=== PATIENT | female | born 1995 | race Caucasian/White ===

== ENCOUNTER 2018-06-12 01:11 | Emergency (ER) | payer OTHER ==
[~2018-06-12] VITALS: Ht 157.5 cm; Wt 49.9 kg
[~2018-06-12 01:11] MED LIST: COM5 PO; IBUP-2213 PO
[2018-06-12 01:27] VITALS: BP 107/68
--- NOTE | 2018-06-12 01:31 | NUR ---
PT TAKEN TO BED 11
[2018-06-12] MEDS ORDERED: ALBUTEROL 0.083% 2.5 MG/3 ML NEBU INH ONE (01:35)
[2018-06-12] MEDS ORDERED: predniSONE 20 MG TAB PO ONE (01:35)
[2018-06-12] MEDS ORDERED: ALBUTEROL SULFATE/IPRATROPIU 3 ML SOL IH ONE (01:35)
--- NOTE | 2018-06-12 01:35 | NUR ---
PT BIB SELF C/O ASTHMA EXACERBATION X1 HOUR AGO. PT STATES SHE WAS SLEEPING AND WOKE UP W/ SOB AND WHEEZING, UNRELIEVED BY HOME INHALER. AUDIBLE WHEEZING IN RIGHT LOBES ON INSPO AND EXPO. DENIES N/V/D, CP, LOC. AAOX4. SAT AT 100% ROOM AIR AT THIS TIME. 0/10 PAIN AT THIS TIME. SKIN WARM, DRY AND INTACT. PT IN GOWN IN BED; BED IN LOWER LOCKED POSITION. ER MD MADE AWARE OF PT STATUS. PMH: ASTHMA RX: PRN INHALER
--- NOTE | 2018-06-12 01:36 | NUR ---
RT AT BEDSIDE.
--- NOTE | 2018-06-12 02:23 | NUR ---
Dr. Schwartz evaluating patient at bedside.
[2018-06-12 02:33] VITALS: BP 148/73
--- NOTE | 2018-06-12 02:33 | NUR ---
Patient discharged with v/s stable. Written and verbal after care instructions given and explained. Patient alert, oriented and verbalized understanding of instructions. Ambulatory with steady gait. All questions addressed prior to discharge. ID band removed. Patient advised to follow up with PMD. Rx of ALBUTEROL INHALER, PREDNISONE given. Patient educated on indication of medication including possible reaction and side effects. Opportunity to ask questions provided and answered.
== END 2018-06-12 02:33 | disposition home or self-care (01) ==
LOC: MED 01:11
DX: J45.901 Unspecified asthma with (acute) exacerbation (principal); Z79.899 Other long term (current) drug therapy
CPT/HCPCS: 94640; 99283; J7512; J7613; J7620

== ENCOUNTER 2018-07-19 05:05 | Emergency (ER) | payer OTHER ==
[~2018-07-19] VITALS: Ht 157.5 cm; Wt 50.8 kg
[2018-07-19 05:07] VITALS: BP 123/70
--- NOTE | 2018-07-19 05:13 | NUR ---
TO ED 11 WITH STEADY GAIT
--- NOTE | 2018-07-19 05:14 | NUR ---
PT BIB SELF CO SOB SINCE 2200 YESTERDAY NIGHT. PT REPORTS SHE SELF ADMINISTERED 2 DOSES OF MED NEB ALBUTEROL, THE LAST ONE BEING 40 MINS AGO WITH NO RELIEF OF SYMPTOMS. -- AUDIBLE INS/EXP WHEEZES HEARD. PT IS GASPING AND APPEARS TO BE RESTLESS. CHEST RISE AND FALL SYMETRICAL. 02 SATURATION: 95% -- PMH: ASTHMA, ECXZEMA -- RX: ALBUTEROL
--- NOTE | 2018-07-19 05:19 | NUR ---
RT CALLED TO BEDSIDE FOR BREATHING TX PER DR. LOGAN. RT IN ICU, WILL BE HERE IN A FEW MINS.
--- NOTE | 2018-07-19 05:21 | NUR ---
Dr. Schwartz evaluating patient at bedside.
--- NOTE | 2018-07-19 05:27 | NUR ---
RT AT BEDSIDE.
[2018-07-19] MEDS ORDERED: ALBUTEROL 0.083% 2.5 MG/3 ML NEBU INH ONE ×2 (05:35→06:00)
[2018-07-19] MEDS ORDERED: ALBUTEROL SULFATE/IPRATROPIU 3 ML SOL IH ONE ×2 (05:36→06:00)
--- NOTE | 2018-07-19 05:36 | NUR ---
BREATHING TREATMENT IN PROGRESS. PREDNISONE 50 MG PO GIVEN.
[2018-07-19] MEDS ORDERED: predniSONE 20 MG TAB ONE (05:41)
--- NOTE | 2018-07-19 05:52 | NUR ---
2ND ALBUTEROL TX ORDERED; IN PROCESS.
[2018-07-19 06:14] VITALS: BP 135/72
--- NOTE | 2018-07-19 06:14 | NUR ---
Patient discharged with v/s stable. Written and verbal after care instructions given and explained. Patient alert, oriented and verbalized understanding of instructions. Ambulatory with steady gait. All questions addressed prior to discharge. ID band removed. Patient advised to follow up with PMD. Rx of Prednisone and Albuterol given. Patient educated on indication of medication including possible reaction and side effects. Opportunity to ask questions provided and answered.
== END 2018-07-19 06:14 | disposition home or self-care (01) ==
LOC: MED 05:05
DX: J45.901 Unspecified asthma with (acute) exacerbation (principal); Z79.1 Long term (current) use of non-steroidal anti-inflammatories (NSAID); Z79.899 Other long term (current) drug therapy
CPT/HCPCS: 94640; 99283; J7512; J7613; J7620

== ENCOUNTER 2018-10-20 00:40 | Emergency (ER) | payer OTHER ==
[~2018-10-20] VITALS: Ht 154.9 cm; Wt 45.4 kg
[2018-10-20 00:44] VITALS: BP 134/78
--- NOTE | 2018-10-20 00:50 | NUR ---
PT AMBULATED TO BED #1
--- NOTE | 2018-10-20 01:25 | NUR ---
23 YO F BIB SELF PRESENTS TO ED C/O RASH TO FACE AND ABD. PT STATES SHE THINKS SHE IS ALLERGIC TO THE MAKEUP SHE USES. PT HAS 2 RED OPEN SORES TO HER FOREHEAD AND ONE TO HER UPPER ABD REGION. DENIES ILICIT DRUG USE. DENIES FEVER, NVD. REPORTS 5/10 PAIN TO SORE AREAS. PMH-- ECZEMA, ASTHMA
[2018-10-20 02:24] VITALS: BP 99/57
[2018-10-20 02:28] LABS: BARBITURATE, URINE NEG. ng/ml (NEG <=200); BENZODIAZEPINE, URINE NEG. ng/mL (NEG <=200); CANNABINOID, URINE POS. ng/mL (NEG <=50); COCAINE, URINE NEG. ng/mL (NEG <=300); OPIATE, URINE NEG. ng/mL (NEG <=2000); PHENCYCLIDINE SCREEN,URINE NEG. ng/mL (NEG <=25)
== END 2018-10-20 02:24 | disposition home or self-care (01) ==
LOC: MED 00:40
DX: R21 Rash and other nonspecific skin eruption (principal); F15.10 Other stimulant abuse, uncomplicated; J45.909 Unspecified asthma, uncomplicated; Z79.899 Other long term (current) drug therapy
CPT/HCPCS: 80305; 99283

== ENCOUNTER 2018-12-01 06:38 | Emergency (ER) | payer OTHER ==
[~2018-12-01] VITALS: Ht 154.9 cm; Wt 44.0 kg
[2018-12-01 06:43] VITALS: BP 125/91
--- NOTE | 2018-12-01 06:55 | NUR ---
PT TAKEN TO BED 11
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
--- NOTE | 2018-12-01 07:07 | NUR ---
REPORT GIVEN TO BENJAMÍN CANALES. TRANSFER OF CARE AT THIS TIME.
--- NOTE | 2018-12-01 07:12 | NUR ---
dr ojeda at bedside
[2018-12-01 07:26] VITALS: BP 122/90
--- NOTE | 2018-12-01 07:26 | NUR ---
Patient discharged with v/s stable. Written and verbal after care instructions given and explained. Patient alert, oriented and verbalized understanding of instructions. Ambulatory with steady gait. All questions addressed prior to discharge. ID band removed. Patient advised to follow up with PMD. Rx of HYDROCORTISONE ACETATE RECTAL SUPPOSITORY given.PT INSTRUCTED ON PROPER USE OF SUPPOSITORY. Patient educated on indication of medication including possible reaction and side effects. Opportunity to ask questions provided and answered.
== END 2018-12-01 07:26 | disposition home or self-care (01) ==
LOC: MED 06:38
DX: K64.9 Unspecified hemorrhoids (principal); K59.00 Constipation, unspecified; J45.909 Unspecified asthma, uncomplicated; Z79.1 Long term (current) use of non-steroidal anti-inflammatories (NSAID); Z79.899 Other long term (current) drug therapy; Z87.2 Personal history of diseases of the skin and subcutaneous tissue
CPT/HCPCS: 99282

== ENCOUNTER 2019-02-08 15:14 | Emergency (ER) | payer OTHER ==
[~2019-02-08] VITALS: Ht 154.9 cm; Wt 45.4 kg
[2019-02-08 15:23] VITALS: BP 114/58
--- NOTE | 2019-02-08 15:55 | NUR ---
pt arrived to ed by ambulance c/o asthma excaberation x today. no resp distress. lung sounds clear all throughout. vs stable. a &o x 4. pt is 7 weeks preg. pt also states shes been v x couple weeks. pt eyes are sunken, dry mucus membranes, chapped lips. pt states. "alexandra lost alot of wt because alexandra been vmitting and i havent been able to hold anything down." nka. pmh: asthma, intubation d/t asthma exacerbation.
--- NOTE | 2019-02-08 16:45 | NUR ---
PT REFUSING BLOOD DRAW. MADE AWARE. PT TO SIGN AMA.
--- NOTE | 2019-02-08 16:56 | NUR ---
PT SIGNED AMA FORM. NO FURTHER CARE PROVIDED. RX OF ALBUTEROL GIVEN. IV REMOVED PRIOR TO LEAVING FACLITY.
[2019-02-08 16:57] VITALS: BP 114/58
== END 2019-02-08 16:56 | disposition left against medical advice (07) ==
LOC: MED 15:14
DX: O26.891 Other specified pregnancy related conditions, first trimester (principal); R06.02 Shortness of breath; O21.9 Vomiting of pregnancy, unspecified; J45.909 Unspecified asthma, uncomplicated; Z79.1 Long term (current) use of non-steroidal anti-inflammatories (NSAID); Z79.899 Other long term (current) drug therapy; Z3A.01 Less than 8 weeks gestation of pregnancy
CPT/HCPCS: 99283

== ENCOUNTER 2019-12-25 17:37 | Emergency (ER) | payer OTHER ==
[~2019-12-25] VITALS: Ht 154.9 cm; Wt 47.6 kg
[2019-12-25 17:42] VITALS: BP 111/68
--- NOTE | 2019-12-25 17:53 | NUR ---
RECEIVED A 24/F FROM TRIAGE FOR DYSURIA. PT REPORTS SHE IS APPROX 16 WEEKS WITH TWINS. NO DISTRESS NOTED. IN BED FOR MSE.
[2019-12-25] MEDS ORDERED: cefTRIAXone 1,000 MG in LIDOCAINE MPF 1% 2.1 ML IM ONE (18:05)
[2019-12-25] MEDS ORDERED: cefTRIAXone 1,000 MG VIAL ONE ×2 (18:11→18:39)
[2019-12-25] MEDS ORDERED: LIDOCAINE MPF 1% 5 ML ONE (18:11)
[2019-12-25] MEDS ORDERED: ACETAMINOPHEN 325 MG TAB PO ONE (18:15)
--- NOTE | 2019-12-25 18:18 | NUR ---
US TECH AT BEDSIDE
--- NOTE | 2019-12-25 18:20 | NUR ---
PT REPORTED NAUSEA AND HAD 1 EPISODE OF EMESIS DURING ULTRASOUND. ZHOU DELGADO MADE AWARE -- ORDERS RECEIVED.
[2019-12-25] MEDS ORDERED: NACL 0.9% 1,000 ML IV ONE (18:30)
[2019-12-25] MEDS ORDERED: METOCLOPRAMIDE 10 MG/2 ML INJ VIAL IVP ONE (18:30)
[2019-12-25] MEDS ORDERED: METOCLOPRAMIDE 10 MG/2 ML INJ VIAL ONE (18:31)
[2019-12-25 18:45] LABS: BASOPHILS % (AUTO) 0.2 % (0.0-2.0); EOSINOPHILS # (AUTO) 0.1 K/uL (0-0.4); EOSINOPHILS % (AUTO) 0.9 % (0.0-4.0); HEMATOCRIT 25.4 % (36-48); LYMPHOCYTES # (AUTO) 1.6 K/uL (2.5-16.5); LYMPHOCYTES % (AUTO) 14.4 % (20.5-51.1); MEAN CORPUSCULAR HEMOGLOBIN 22 pg (27-31); MEAN CORPUSCULAR HGB CONC 31 g/dL (33-37); MEAN CORPUSCULAR VOLUME 68.7 fL (80-94); MONOCYTES # (AUTO) 1.1 K/uL (0.8-1.0); NEUTROPHILS # (AUTO) 8.5 K/uL (1.8-7.7); NEUTROPHILS % (AUTO) 74.5 % (42.2-75.2); PLATELET COUNT (AUTO) 458 K/uL (140-450); RED CELL DISTRIBUTION WIDTH 18.8 % (11.6-13.7); WHITE BLOOD COUNT (AUTO) 11.5 K/uL (4.8-10.8)
[2019-12-25 18:56] LABS: ALBUMIN 2.3 g/dL (3.4-5.0); ANION GAP 13.8 (8-16); CARBON DIOXIDE 23.1 mmol/L (21-32); CREATININE 0.5 mg/dL (0.6-1.3); POTASSIUM 3.9 mmol/L (3.5-5.1); TOTAL BILIRUBIN 0.2 mg/dL (0.0-1.0)
--- NOTE | 2019-12-25 19:23 | NUR ---
PT APPEARED TO BE SLEEPING IN BED WHEN REPORT RECEIVED FROM BENJAMÍN GAONA. VSS, R/R EQUAL, AND UNLABORED. NO DISTRESS NOTED AT THIS TIME. BED IN LOW POSITION, SIDE RAIL X2, WILL CONTINUE TO MONITOR.
[2019-12-25 19:40] LABS: BARBITURATE, URINE NEGATIVE ng/ml (NEG <=200)
[2019-12-25 19:41] LABS: BENZODIAZEPINE, URINE NEGATIVE ng/mL (NEG <=200); CANNABINOID, URINE NEGATIVE ng/mL (NEG <=50); COCAINE, URINE NEGATIVE ng/mL (NEG <=300); OPIATE, URINE NEGATIVE ng/mL (NEG <=2000); PHENCYCLIDINE SCREEN,URINE NEGATIVE ng/mL (NEG <=25)
--- NOTE | 2019-12-25 20:39 | NUR ---
Patient discharged with v/s stable. Written and verbal after care instructions given and explained. Patient alert, oriented and verbalized understanding of instructions. Ambulatory with steady gait. All questions addressed prior to discharge. ID band removed. Patient advised to follow up with PMD. Rx of COLACE, KEFLEX, FERROUS SULFATE given. Patient educated on indication of medication including possible reaction and side effects. Opportunity to ask questions provided and answered.
[2019-12-25 20:41] VITALS: BP 111/68
== END 2019-12-25 20:39 | disposition home or self-care (01) ==
LOC: MED 17:37
DX: O23.42 Unspecified infection of urinary tract in pregnancy, second trimester (principal); O30.042 Twin pregnancy, dichorionic/diamniotic, second trimester; D64.9 Anemia, unspecified; F15.10 Other stimulant abuse, uncomplicated; J45.909 Unspecified asthma, uncomplicated; Z3A.16 16 weeks gestation of pregnancy; Z79.899 Other long term (current) drug therapy
CPT/HCPCS: 36415; 76815; 80053; 80305; 81002; 81025; 85025; 87086; 96365; 96375; 99284; J0696; J2001; J2765; J7030; Q0092

== ENCOUNTER 2020-04-24 08:45 | Inpatient (IN) | payer OTHER, SELFPAY ==
[~2020-04-24] VITALS: Ht 152.4 cm; Wt 61.7 kg
[~2020-04-24 08:45] MED LIST changes: -COM5 PO; +PROC-62 PO
[2020-04-24 09:17] VITALS: BP 178/93
[2020-04-24] MEDS ORDERED: MAG SULF 20 GM/H2O PREMIX DRIP 500 ML IV ONE (09:27)
[2020-04-24] MEDS ORDERED: MAG SULF 20 GM/H2O PREMIX DRIP 500 ML IV SCH (09:35)
[2020-04-24] MEDS ORDERED: BETAMETH ACET/BETAMETH NA PH 30 MG/5 ML VIAL IM SCH (09:40)
[2020-04-24] MEDS ORDERED: LACTATED RINGERS 1,000 ML IV SCH (09:45)
[2020-04-24] MEDS ORDERED: LABETALOL 100 MG/20 ML VIAL ONE (09:56)
[2020-04-24 10:38] LABS: ALBUMIN 1.4 g/dL (3.4-5.0); ANION GAP 17.1 (8-16); CARBON DIOXIDE 19.5 mmol/L (21-32); CREATININE 1.3 mg/dL (0.6-1.3); POTASSIUM 4.6 mmol/L (3.5-5.1); PROTHROMBIN TIME 9.2 secs (10.8-13.4); TOTAL BILIRUBIN 0.3 mg/dL (0.0-1.0)
[2020-04-24 10:49] LABS: BASOPHILS % (AUTO) 0.4 % (0.0-2.0); EOSINOPHILS # (AUTO) 0.2 K/uL (0-0.4); EOSINOPHILS % (AUTO) 2.3 % (0.0-4.0); HEMATOCRIT 29.8 % (36-48); HEMOGLOBIN 9.5 g/dL (12.0-16.0); LYMPHOCYTES # (AUTO) 2.5 K/uL (2.5-16.5); LYMPHOCYTES % (AUTO) 26.8 % (20.5-51.1); MEAN CORPUSCULAR HEMOGLOBIN 24 pg (27-31); MEAN CORPUSCULAR HGB CONC 32 g/dL (33-37); MEAN CORPUSCULAR VOLUME 75.4 fL (80-94); MONOCYTES % (AUTO) 10.1 % (1.7-9.3); NEUTROPHILS # (AUTO) 5.7 K/uL (1.8-7.7); NEUTROPHILS % (AUTO) 60.4 % (42.2-75.2); PLATELET COUNT (AUTO) 300 K/uL (140-450); RED BLOOD CELL COUNT(AUTO) 3.96 MIL/uL (4.20-5.40); RED CELL DISTRIBUTION WIDTH 24.8 % (11.6-13.7); WHITE BLOOD COUNT (AUTO) 9.5 K/uL (4.8-10.8)
[2020-04-24 12:24] LABS: APPEARANCE,URINE CLEAR (CLEAR); BILIRUBIN,URINE NEGATIVE (NEGATIVE); BLOOD, URINE TRACE-I (NEGATIVE); COLOR,URINE YELLOW (YELLOW); LEUKOCYTE ESTERASE ,URINE NEGATIVE (NEGATIVE); NITRITE, URINE NEGATIVE (NEGATIVE); UGLUCOSE NEGATIVE (NEGATIVE)
[2020-04-24 12:39] LABS: RBC,URINE 0-5 /HPF (0-5); WBC,URINE 0-5 /HPF (0-5)
[2020-04-24] MEDS ORDERED: LABETALOL 100 MG/20 ML VIAL IV PRN (13:50)
== END 2020-04-24 11:18 | disposition short-term general hospital (02) | DRG 566 ==
LOC: MLD 08:45 → OBSVTOIN 08:55 → UNDODISOB 11:18
PROVIDERS: ADMIT Obstetrics & Gynecology; ATTEND Obstetrics & Gynecology
DX: O16.2 Unspecified maternal hypertension, second trimester (principal); O14.12 Severe pre-eclampsia, second trimester; O29.42 Spinal and epidural anesthesia induced headache during pregnancy, second trimester; O99.012 Anemia complicating pregnancy, second trimester; Z3A.29 29 weeks gestation of pregnancy; Z20.828 Contact with and (suspected) exposure to other viral communicable diseases; D64.9 Anemia, unspecified
CPT/HCPCS: 36415; 80053; 81001; 82570; 84550; 85025; 85384; 85610; 85730; 87086; G0378; J0702; J3475; J3490

== ENCOUNTER 2021-05-18 08:22 | Emergency (ER) | payer OTHER, SELFPAY ==
[~2021-05-18] VITALS: Ht 152.4 cm; Wt 45.8 kg
[2021-05-18 08:33] VITALS: BP 159/108
--- NOTE | 2021-05-18 08:36 | NUR ---
PT TO LOBBY.
--- NOTE | 2021-05-18 09:10 | NUR ---
NOTIFIED BY NORA IN RADIOLOGY THAT PT IS REFUSING THE XRAY. ART MADE AWARE.
--- NOTE | 2021-05-18 10:15 | NUR ---
PT LEFT PHONE NUMBER WITH ADMITTING AND STATED FOR US TO CALL HER WITH RESULTS AND LEFT FACILITY. I CALLED PT AND INFORMED HER THAT WE DO NOT CALL FOR RESULTS THAT SHE NEEDS TO BE HERE FOR THE DOCTOR TO DISCLOSE RESULTS AND PLAN OF CARE PER DR MARR. PT REPORTED THAT SHE WILL RETURN.
[2021-05-18 10:18] LABS: BASOPHILS # (AUTO) 0.1 K/uL (0.00-0.22); EOSINOPHILS # (AUTO) 0.7 K/uL (0-0.4); EOSINOPHILS % (AUTO) 8.6 % (0.0-4.0); HEMATOCRIT 37.7 % (36-48); HEMOGLOBIN 12.1 g/dL (12.0-16.0); LYMPHOCYTES # (AUTO) 2.6 K/uL (2.5-16.5); LYMPHOCYTES % (AUTO) 33.2 % (20.5-51.1); MEAN CORPUSCULAR HEMOGLOBIN 25 pg (27-31); MEAN CORPUSCULAR HGB CONC 32 g/dL (33-37); MONOCYTES # (AUTO) 0.6 K/uL (0.8-1.0); MONOCYTES % (AUTO) 8.2 % (1.7-9.3); NEUTROPHILS # (AUTO) 3.8 K/uL (1.8-7.7); PLATELET COUNT (AUTO) 505 K/uL (140-450); RED BLOOD CELL COUNT(AUTO) 4.95 MIL/uL (4.20-5.40); RED CELL DISTRIBUTION WIDTH 18.6 % (11.6-13.7); WHITE BLOOD COUNT (AUTO) 7.7 K/uL (4.8-10.8)
[2021-05-18 10:44] LABS: ANION GAP 14.4 (8-16); CARBON DIOXIDE 25.3 mmol/L (21-32); CREATININE 0.7 mg/dL (0.6-1.3); POTASSIUM 3.7 mmol/L (3.5-5.1)
--- NOTE | 2021-05-18 11:09 | NUR ---
PT CALLED BY , NO ANSWER. PT CALLED AT PHONE NUMBER NO RESPONSE, LEFT VM.
--- NOTE | 2021-05-18 13:01 | NUR ---
PT ANSWERED PHONE, NOT COMING BACK FOR PAPERWORK. MADE AWARE.
[2021-05-18 13:02] VITALS: BP 159/108
== END 2021-05-18 13:01 | disposition home or self-care (01) ==
LOC: MED 08:22
DX: R55 Syncope and collapse (principal); J45.909 Unspecified asthma, uncomplicated
CPT/HCPCS: 80048; 84484; 85025; 93005; 99284

== ENCOUNTER 2021-09-08 23:10 | Inpatient (IN) | payer OTHER ==
[~2021-09-08] VITALS: Ht 157.5 cm; Wt 50.8 kg
[2021-09-08 23:13] VITALS: BP 121/73
--- NOTE | 2021-09-08 23:13 | NUR ---
KELLY OBRIEN TAKEN TO BED #12
--- NOTE | 2021-09-08 23:15 | NUR ---
26 YO/F BIBA FROM HOME S/P BEING FOUND UNCONSCIOUS. PER PT SHE THOUGHT SHE DID COCAINE BUT BELIEVES IT WAS LACED W SOMETHING ELSE, PT REPORTS LAST SHE REMEMBERS WAS DOING COCAINE THEN FALLING ASLEEP. UNSURE OF ANY HEAD INJURY. PT REPORTS FEELING WEEKS, CONFUSED AND LIGHT HEADED. PT DENIES ANY PAIN, HEADACHE, SOB, N/V/D OR OTHER SYMPTOMS. PT AOX4, GCS 15, SLOW TO RESPOND TO QUESTIONS. PT BREATHING EVEN AND UNLABORED. CONNECTED TO MONITOR. WILL CONTINUE TO MONITOR. PMH: ASTHMA ALLERGIES: DENIES Addendum: 09/09/21 at 0047 by MEDVERITOK PT WAS GIVEN 4MG OF NARCAN BY [facility]. PT HAS 18G L AC.
--- NOTE | 2021-09-08 23:18 | NUR ---
PT'S MOTHER IRINA STUART CALLED TO INFORM RN THAT PT . MOTHER'S PHONE NUMBER IS [phone].
[2021-09-08] MEDS ORDERED: ACETAMINOPHEN EXTRA STRENGTH 500 MG TAB PO ONE (23:25)
[2021-09-08] MEDS ORDERED: ONDANSETRON 4 MG/2 ML VIAL IVP ONE (23:25)
[2021-09-08] MEDS ORDERED: NACL 0.9% 1,000 ML IV ONE (23:25)
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
--- NOTE | 2021-09-08 23:40 | NUR ---
PT REFUSED ZOFRAN OR TYLENOL AT THIS TIME, DENIES PAIN OR NAUSEA.
[2021-09-08 23:41] LABS: BASOPHILS % (AUTO) 0.5 % (0.0-2.0); EOSINOPHILS # (AUTO) 0.7 K/uL (0-0.4); EOSINOPHILS % (AUTO) 9.8 % (0.0-4.0); HEMOGLOBIN 11.3 g/dL (12.0-16.0); LYMPHOCYTES # (AUTO) 2.6 K/uL (2.5-16.5); LYMPHOCYTES % (AUTO) 34.9 % (20.5-51.1); MEAN CORPUSCULAR HEMOGLOBIN 26 pg (27-31); MEAN CORPUSCULAR HGB CONC 32 g/dL (33-37); MEAN CORPUSCULAR VOLUME 81.9 fL (80-94); MONOCYTES # (AUTO) 0.5 K/uL (0.8-1.0); NEUTROPHILS # (AUTO) 3.5 K/uL (1.8-7.7); NEUTROPHILS % (AUTO) 47.8 % (42.2-75.2); PLATELET COUNT (AUTO) 380 K/uL (140-450); RED BLOOD CELL COUNT(AUTO) 4.27 MIL/uL (4.20-5.40); WHITE BLOOD COUNT (AUTO) 7.4 K/uL (4.8-10.8)
[2021-09-08 23:58] LABS: ALBUMIN 3.2 g/dL (3.4-5.0); ANION GAP 12.7 (8-16); ASPARTATE AMINOTRANSFERASE 24 U/L (15-37); CARBON DIOXIDE 23.9 mmol/L (21-32); CHLORIDE 106 mmol/L (98-107); CREATININE 0.8 mg/dL (0.6-1.3); GFR ARICAN-AMERICAN 111 mL/min (>90); GLUCOSE 237 mg/dL (74-106); POTASSIUM 3.6 mmol/L (3.5-5.1); SODIUM SERUM 139 mmol/L (136-145); TOTAL BILIRUBIN 0.1 mg/dL (0.0-1.0); UREA NITROGEN, BLOOD 15 mg/dL (7-18)
--- NOTE | 2021-09-09 00:01 | NUR ---
PT USING ED PHONE TO SPEAK TO FATHER.
--- NOTE | 2021-09-09 00:04 | NUR ---
PT DENIES KNOWN , ED PREG TEST NEGATIVE.
[2021-09-09 00:21] LABS: BARBITURATE, URINE NEGATIVE ng/ml (NEG <=200); BENZODIAZEPINE, URINE NEGATIVE ng/mL (NEG <=200); CANNABINOID, URINE NEGATIVE ng/mL (NEG <=50); COCAINE, URINE NEGATIVE ng/mL (NEG <=300); OPIATE, URINE NEGATIVE ng/mL (NEG <=2000); PHENCYCLIDINE SCREEN,URINE NEGATIVE ng/mL (NEG <=25)
--- NOTE | 2021-09-09 00:51 | NUR ---
PER PT TO NOT GIVE PT INFO ANYONE.
--- NOTE | 2021-09-09 01:56 | NUR ---
PT DID NOT PASS ROAD TEST. WHEN PT FALLS ASLEEP RR GOES DOWN TO 6, O2 SAT AT 89%. PLACED ON 2L AND WOKEN UP, RR GOES UP TO 18. ERMD MADE AWARE, STATES TO HOLD PT UNTIL SHE IS FULLY AWAKE.
[2021-09-09] MEDS ORDERED: NACL 0.9% 1,000 ML IV ONE (02:00)
[2021-09-09] MEDS ORDERED: AMMONIA AROMATIC 1 INHL INH ONE (02:06)
[2021-09-09 02:26] LABS: APPEARANCE,URINE CLEAR (CLEAR); BILIRUBIN,URINE NEGATIVE (NEGATIVE); BLOOD, URINE NEGATIVE (NEGATIVE); COLOR,URINE YELLOW (YELLOW); LEUKOCYTE ESTERASE ,URINE NEGATIVE (NEGATIVE); NITRITE, URINE NEGATIVE (NEGATIVE); PH,URINE 6.5 (5.0-9.0); UGLUCOSE 3+ (NEGATIVE)
--- NOTE | 2021-09-09 04:47 | NUR ---
PT DESAT TO 76% RR 5, PT FOUND IN ROOM W/O NC. PT AWAKEN AND REPLECED ON NC O2 SAT 95% ON 2 L NC. REMINDED PT TO STAY ON NC, PT VERBALIZES UNDERSTANDING. ERMD AWARE OF PT STATUS. PT DENIES ANY PAIN OR SOB, PT AOX4, GCS15.
--- NOTE | 2021-09-09 04:59 | NUR ---
PT VOMITING, ERMD AWARE.
[2021-09-09] MEDS ORDERED: ONDANSETRON 4 MG/2 ML VIAL IVP ONE (05:00)
--- NOTE | 2021-09-09 05:23 | NUR ---
RT AT BEDSIDE FOR ABG.
[2021-09-09] MEDS ORDERED: MAG SULF 2000 MG/WATER PREMIX 50 ML IV PRN (06:55)
[2021-09-09] MEDS ORDERED: POTASSIUM CHLORIDE 10 MEQ TABER PO PRN (06:55)
[2021-09-09] MEDS ORDERED: HYDROcodone/APAP 5/325 MG 1 TAB TAB PO PRN (06:55)
[2021-09-09] MEDS ORDERED: KCL 20 MEQ/WATER INJ PREMIX 200 ML IV PRN (06:55)
[2021-09-09] MEDS ORDERED: ONDANSETRON 4 MG/2 ML VIAL IVP PRN (06:55)
[2021-09-09] MEDS ORDERED: NACL 0.9% 1,000 ML IV SCH (06:55)
[2021-09-09] MEDS ORDERED: ACETAMINOPHEN 325 MG TAB PO PRN (06:55)
[2021-09-09] MEDS ORDERED: MORPHINE SULFATE 4 MG/ML SYR IVP PRN (06:55)
[2021-09-09] MEDS ORDERED: MAGNESIUM OXIDE 400 MG TAB PO PRN (06:55)
--- NOTE | 2021-09-09 06:58 | NUR ---
PT AT CT.
--- NOTE | 2021-09-09 07:01 | NUR ---
PT BACK FROM CT.
--- NOTE | 2021-09-09 07:10 | NUR ---
PT PROVIDED W WATER. DENIES NAUSEA.
--- NOTE | 2021-09-09 07:14 | NUR ---
Pt report given to BENJAMÍN CALLE. Transfer of care at this time.
--- NOTE | 2021-09-09 07:16 | NUR ---
RECEIVED REPORT FROM ZION BUTTS, TRANSFER OF CARE AT THIS TME, RECEIVED PATIENT ASLEEP AT THIS TIME SUPINE, BED IN LOWEST POSITION, LOCKED, ON 2LPM NC, SATTING AT 98% RESPIRATIONS EVEN AND UNLABORED. NSS 100ML/HR L AC 18G FLOWING WELL.
--- NOTE | 2021-09-09 07:50 | NUR ---
RECEIVED PT FROM ED VIA RZUHAIR, BEDSIDE REPORT GIVEN BY ALVA. PT AWAKE, RESPONSIVE BUT DROWSY. ON 2L NC DUE TO HYPOXIC EPISODE. BREATHING SYMMETRICAL. LAC 18G WITH NS AT 80CC/HR. PT DENIES PAIN AT THIS TIME. SKIN INTACT. CALL LIGHT WITHIN REACH. ENCOURAGED TO CALL FOR ASSISTANCE. EDUCATED PT HOW TO USE CALL BUTTON. BED PLACED ON LOW POSITION, BRAKES ON. ALL SAFETY MEASURES IN PLACE. PER REPORT PT DOESN'T WANT ANY VISITORS AND ANY INFORMATION GIVEN TO ANYONE INCLUDING HER FAMILY MEMBER, VERIFIED THIS INFORMATION AND PT DID STATE NO VISITORS AND NOT TO GIVE ANY INFORMATION TO ANYONE. [id number] PR69 RR17 TEMP98.0 O2 SAT 100% AT 2L NC.
--- NOTE | 2021-09-09 07:56 | NUR ---
Patient will be admitted to care of DR SIDDHARTHA GUEVARA. Admited to TELEMETRY. Will go to room 104B. Belongings list completed. Report to KRISSY BUTTS.
[2021-09-09 08:00] VITALS: BP 120/68
--- NOTE | 2021-09-09 08:20 | NUR ---
PT GAVE PERMISSION FOR BOYFRIEND (BARRY) TO VISIT HER BUT HE NEEDS TO STEP OUT OF THE ROOM WHENEVER CARE/ANY TYPE OF SERVICE IS BEING RENDERED TO THE PT. SECURITY IS AWARE. BOYFRIEND AGREED TO TERMS OF VISITATION.
[2021-09-09] MEDS ORDERED: DOCUSATE SODIUM 100 MG GELCAP PO SCH (09:00)
[2021-09-09] MEDS ORDERED: ALBUTEROL HFA MDI 90 MCG/ACTUATION 8 GM INH PRN (10:40)
--- NOTE | 2021-09-09 10:47 | NUR ---
DC PLANNIN YRS OLD FEMALE PATIENT WAS ADMITTED FROM HOME WITH A DX OF ACUTE HYPOXIA/DRUG OVERDOSE. PATIENT HAS A HX OF ASTHMA AND DRUG USE, WAS FOUND UNCONSCIOUS AND NARCAN GIVEN. CXR SHOWED MINIMAL BIBASILAR ATELECTASIS CT HEAD (-) CT CHEST SHOWED FOCAL CONSOLIDATION SUSPICIOUS FOR PNEUMONIA. RAPID COVID TEST NEGATIVE. ADMINISTERED IVF. ON O2 2L/NC SATING 98%. DC PLAN TO GO HOME WHEN STABLE CM TO FOLLOW.
[2021-09-09] MEDS ORDERED: ALBUTEROL 0.083% 2.5 MG/3 ML NEBU INH PRN (10:55)
--- NOTE | 2021-09-09 10:55 | NUR ---
PT NOTED WHEEZING, O2 SAT REMAINS 99% ON 2L NC. PT HAS HX OF ASTHMA, OBTAINED ORDER FOR NEBULIZER FROM DR SEQUEIRA. PT AWARE
--- NOTE | 2021-09-09 11:45 | NUR ---
PT'S MOM CALLED AND ASKING FOR INFORMATION, MADE HER AWARE THAT PER PT'S REQUEST WE CANNOT GIVE ANY INFORMATION AT ALL TO ANYONE. PT'S MOM IS UPSET BUT MADE HER UNDERSTAND THAT IT IS THE PT'S WISHES AND WE HAVE TO HONOR IT. PT'S MOM WAS ASKING IF PT IS DOING OKAY, ASKED PT THAT HER MOM IS ASKING HOW SHE'S DOING AND PER PT OKAY TO SAY THAT SHE'S DOING OKAY BUT ONLY TO TELL HER THAT. MADE HER MOM AWARE OF WHAT PT SAID.
[2021-09-09 12:00] VITALS: BP 116/73
--- NOTE | 2021-09-09 13:30 | NUR ---
PERIPHERAL IV LINE ON LAC CATHETER WAS OUT, CHANGED IV LINE TO LEFT FOREARM 22G, TOLERATED WELL. NO S/SX OF INFILTRATION NOTED AT THIS TIME
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
[2021-09-09 16:00] VITALS: BP 113/70
--- NOTE | 2021-09-09 17:05 | NUR ---
PT DISCHARGED TO HOME WITH BELONGINGS AND PAPERWORKS VIA PRIVATE VEHICLE ACCOMPANIED BY BOYFRIEND.
== END 2021-09-09 17:05 | disposition home or self-care (01) | DRG 816 ==
LOC: MED 23:10 → MTU 09-09 06:51 → OBSVTOIN 09-09 06:51
PROVIDERS: ADMIT Hospitalist; ATTEND Hospitalist
DX: T40.5X1A Poisoning by cocaine, accidental (unintentional), initial encounter (principal); J96.01 Acute respiratory failure with hypoxia; G92.8 Other toxic encephalopathy; E86.0 Dehydration; J45.909 Unspecified asthma, uncomplicated; S70.312A Abrasion, left thigh, initial encounter; F15.129 Other stimulant abuse with intoxication, unspecified; Z20.822 Contact with and (suspected) exposure to COVID-19; E87.2 Acidosis; X58.XXXA Exposure to other specified factors, initial encounter; Y92.89 Other specified places as the place of occurrence of the external cause; Y93.89 Activity, other specified; Y99.8 Other external cause status
CPT/HCPCS: 36415; 36600; 70450; 71045; 71275; 80053; 80305; 81003; 82140; 82803; 83036; 84703; 85025; 87081; 96361; 96374; 99285; G0482; J1644; J2405; J7030; J7613; Q0092; Q9967

== ENCOUNTER 2021-11-24 18:31 | Emergency (ER) | payer OTHER ==
[~2021-11-24] VITALS: Ht 154.9 cm; Wt 45.8 kg
[2021-11-24 18:39] VITALS: BP 125/75
--- NOTE | 2021-11-24 19:51 | NUR ---
PATIENT ELOPED FROM FACILITY. DISCHARGE INSTRUCTIONS NOT GIVEN TO PATIENT. DR. Pat NOTIFIED.
[2021-11-24 20:34] LABS: APPEARANCE,URINE SL CLOUDY (CLEAR); BILIRUBIN,URINE NEGATIVE (NEGATIVE); BLOOD, URINE NEGATIVE (NEGATIVE); COLOR,URINE YELLOW (YELLOW); LEUKOCYTE ESTERASE ,URINE NEGATIVE (NEGATIVE); NITRITE, URINE NEGATIVE (NEGATIVE); UGLUCOSE NEGATIVE (NEGATIVE)
== END 2021-11-24 19:51 | disposition left against medical advice (07) ==
LOC: MED 18:31
DX: O26.891 Other specified pregnancy related conditions, first trimester (principal); Z3A.01 Less than 8 weeks gestation of pregnancy
CPT/HCPCS: 81003

== ENCOUNTER 2021-12-26 01:08 | Emergency (ER) | payer OTHER ==
[~2021-12-26] VITALS: Ht 152.4 cm; Wt 48.1 kg
[2021-12-26 01:10] VITALS: BP 114/65
--- NOTE | 2021-12-26 01:13 | NUR ---
moved to chair c. Dr. Sue notified of pt status. RT at chairside fo intervention.
[2021-12-26] MEDS ORDERED: ALBUTEROL SULFATE/IPRATROPIU 3 ML SOL IH ONE (01:15)
[2021-12-26 01:16] VITALS: BP 114/65
[2021-12-26] MEDS ORDERED: predniSONE 20 MG TAB PO ONE (01:20)
--- NOTE | 2021-12-26 01:21 | NUR ---
PT REQUESTING FOR FETUS TO BE CHECKED OUT. DR. LION MADE AWARE.
[2021-12-26] MEDS ORDERED: predniSONE 20 MG TAB ONE (01:23)
--- NOTE | 2021-12-26 01:23 | NUR ---
PREDNISONE 20MG DROPPED ONTO FLOOR. ANOTHER PREDNISONE 20MG PULLED FROM [facility]
--- NOTE | 2021-12-26 01:45 | NUR ---
PT TAKEN TO U/S
--- NOTE | 2021-12-26 02:25 | NUR ---
PT MOVED TO BED 12
[2021-12-26] MEDS ORDERED: ALBU0.0912 IH (03:19)
--- NOTE | 2021-12-26 03:23 | NUR ---
PT PROVIDED WITH DISCHARGE INSTRUCTIONS BY DR. LION. RX OF ALBUTEROL GIVEN
== END 2021-12-26 03:23 | disposition home or self-care (01) ==
LOC: MED 01:08
DX: O99.511 Diseases of the respiratory system complicating pregnancy, first trimester (principal); J45.901 Unspecified asthma with (acute) exacerbation; Z3A.12 12 weeks gestation of pregnancy; Z98.890 Other specified postprocedural states
CPT/HCPCS: 76801; 94640; 94760; 99284; J7512; Q0092

== ENCOUNTER 2022-02-22 01:55 | Emergency (ER) | payer OTHER ==
[~2022-02-22] VITALS: Ht 154.9 cm; Wt 51.9 kg
[~2022-02-22 01:55] MED LIST changes: +ALBU0.0912 IH; -IBUP-2213 PO; -PROC-62 PO
[2022-02-22 02:00] VITALS: BP 133/72
--- NOTE | 2022-02-22 02:05 | NUR ---
to bed ambulatory
--- NOTE | 2022-02-22 02:10 | NUR ---
PT IN ROOM 8 ON BEDSIDE MONITOR
--- NOTE | 2022-02-22 02:13 | NUR ---
Patient being evaluated by physician sheree at bedside.
[2022-02-22] MEDS ORDERED: ALBUTEROL SULFATE/IPRATROPIU 3 ML SOL IH ONE ×2 (02:14→02:15)
[2022-02-22] MEDS ORDERED: predniSONE 20 MG TAB PO ONE (02:15)
--- NOTE | 2022-02-22 02:15 | NUR ---
rt at bedside
--- NOTE | 2022-02-22 02:17 | NUR ---
27YR OLD FEMALE BIB SELF C/O ASTHMA SOB. PT ON BEDSIDE CASER UP SP02 96%RA . PT IS A&OX4. DENIES CP OR PAIN. RT AT BEDSIDE. PT STATES SOB STARTED EARLIER TODAY. AUDIBLE WHEEZES. SKIN WARM AND DRY. PT IS 20WEEKS PREG. HOB ELEVATED. BED AT LOWEST POSITION. NKDA ASTHMA
--- NOTE | 2022-02-22 02:18 | NUR ---
RT AT BEDSIDE .
[2022-02-22] MEDS ORDERED: ALBU0.0912 INH (03:01)
[2022-02-22] MEDS ORDERED: PRED20TA5 PO (03:01)
[2022-02-22] MEDS ORDERED: PRON INH (03:01)
[2022-02-22 03:10] VITALS: BP 118/75
--- NOTE | 2022-02-22 03:10 | NUR ---
Patient discharged with v/s stable. Written and verbal after care instructions given and explained. Patient alert, oriented and verbalized understanding of instructions. Ambulatory with steady gait. All questions addressed prior to discharge. ID band removed. Patient advised to follow up with PMD. Rx of PREDNISONE,PROVENTIL given. Patient educated on indication of medication including possible reaction and side effects. Opportunity to ask questions provided and answered.
== END 2022-02-22 03:10 | disposition home or self-care (01) ==
LOC: MED 01:55
DX: O26.892 Other specified pregnancy related conditions, second trimester (principal); J45.901 Unspecified asthma with (acute) exacerbation; Z3A.20 20 weeks gestation of pregnancy; Z79.899 Other long term (current) drug therapy
CPT/HCPCS: 94640; 94760; 99284; J7512

== ENCOUNTER 2022-04-04 04:11 | Emergency (ER) | payer OTHER ==
[~2022-04-04] VITALS: Ht 160 cm; Wt 52.2 kg
[~2022-04-04 04:11] MED LIST changes: +ALBU0.0912 INH; +PRED20TA5 PO; +PRON INH
[2022-04-04 04:18] VITALS: BP 158/93
--- NOTE | 2022-04-04 04:18 | NUR ---
PT TO LOBBY
--- NOTE | 2022-04-04 06:15 | NUR ---
SEEN AND EXAMINED BY DR. HASTINGS
[2022-04-04] MEDS ORDERED: ACET-10509 PO (06:28)
[2022-04-04 06:30] VITALS: BP 129/89
== END 2022-04-04 06:30 | disposition home or self-care (01) ==
LOC: MED 04:11
DX: O99.612 Diseases of the digestive system complicating pregnancy, second trimester (principal); K08.89 Other specified disorders of teeth and supporting structures; J45.909 Unspecified asthma, uncomplicated; Z79.899 Other long term (current) drug therapy; Z3A.24 24 weeks gestation of pregnancy; Z98.890 Other specified postprocedural states
CPT/HCPCS: 99282

== ENCOUNTER 2022-04-16 13:39 | Emergency (ER) | payer OTHER ==
[~2022-04-16] VITALS: Ht 154.9 cm; Wt 56.7 kg
[~2022-04-16 13:39] MED LIST changes: +ACET-10509 PO
--- NOTE | 2022-04-16 13:43 | NUR ---
RT AT BEDSIDE
[2022-04-16 13:53] VITALS: BP 130/96
[2022-04-16] MEDS ORDERED: predniSONE 20 MG TAB PO ONE (14:00)
[2022-04-16] MEDS ORDERED: ALBUTEROL SULFATE/IPRATROPIU 3 ML SOL IH ONE ×2 (14:00)
--- NOTE | 2022-04-16 14:06 | NUR ---
27/F WALKED IN C/O ASTHMA TODAY, DENIES MEDS PRIOR, NOTED WHEEZING, 7 MONTHS , [id number], AAO4, AMBULATORY, ON ROOM AIR NKA PMH: ASTHMA
--- NOTE | 2022-04-16 14:07 | NUR ---
PT AMBULATED TO BED 4
[2022-04-16] MEDS ORDERED: ALBU0.0912 IH (14:38)
[2022-04-16] MEDS ORDERED: ALBU2.5V IH (14:38)
--- NOTE | 2022-04-16 15:01 | NUR ---
Note ayahmiguel in EDM - 04/16/22 at 1510 by PHSEP Patient discharged with v/s stable. Patient alert, oriented and verbalized understanding of instructions. Ambulatory with steady gait. ID band removed. Patient advised to follow up with PMD. Rx of ALBUTEROL SULFATE given. . Opportunity to ask questions provided and answered. LEFT W/O PAPER WORK
--- NOTE | 2022-04-16 15:01 | NUR ---
Patient discharged with v/s stable. Ambulatory with steady gait. Opportunity to ask questions provided and answered. RX SENT TO PHARMACY LEFT W/O PAPER WORK
== END 2022-04-16 15:01 | disposition home or self-care (01) ==
LOC: MED 13:39
DX: J45.909 Unspecified asthma, uncomplicated (principal); R03.0 Elevated blood-pressure reading, without diagnosis of hypertension; R05.9 Cough, unspecified; R07.89 Other chest pain; Z79.899 Other long term (current) drug therapy
CPT/HCPCS: 94640; 99283; J7512

== ENCOUNTER 2022-08-20 13:52 | Emergency (ER) | payer OTHER ==
[~2022-08-20] VITALS: Ht 154.9 cm; Wt 53.1 kg
[~2022-08-20 13:52] MED LIST changes: +ALBU2.5V IH
[2022-08-20 13:54] VITALS: BP 143/78
[2022-08-20] MEDS ORDERED: ALBUTEROL SULFATE/IPRATROPIU 3 ML SOL IH ONE ×2 (14:00→14:15)
[2022-08-20] MEDS ORDERED: ALBUTEROL 0.083% 2.5 MG/3 ML NEBU INH ONE (14:05)
[2022-08-20] MEDS ORDERED: predniSONE 20 MG TAB PO ONE (14:05)
--- NOTE | 2022-08-20 14:12 | NUR ---
1401 PT. MOVED TO BED 11, AMBULATED, POSITIVE WHEEZING
--- NOTE | 2022-08-20 14:27 | NUR ---
ASSUMED PATIENT CARE, NURSING ASSESSMENT COMPLETED.
[2022-08-20] MEDS ORDERED: PRON INH (15:31)
[2022-08-20] MEDS ORDERED: ALBU0.0912 IH (15:31)
[2022-08-20] MEDS ORDERED: PRED20TA5 PO (15:31)
[2022-08-20 15:43] VITALS: BP 110/60
--- NOTE | 2022-08-20 15:44 | NUR ---
Patient discharged with v/s stable. Written and verbal after care instructions given and explained. Patient alert, oriented and verbalized understanding of instructions. Ambulatory with steady gait. All questions addressed prior to discharge. ID band removed. Patient advised to follow up with PMD. Rx of PREDNISONE, ALBUTEROL given. Patient educated on indication of medication including possible reaction and side effects. Opportunity to ask questions provided and answered.
== END 2022-08-20 15:43 | disposition home or self-care (01) ==
LOC: MED 13:52
DX: J45.901 Unspecified asthma with (acute) exacerbation (principal); Z79.899 Other long term (current) drug therapy
CPT/HCPCS: 94640; 99283; J7512; J7613

== ENCOUNTER 2022-09-10 02:10 | Emergency (ER) | payer OTHER ==
[~2022-09-10] VITALS: Ht 157.5 cm; Wt 53.5 kg
[2022-09-10 02:20] VITALS: BP 128/88
--- NOTE | 2022-09-10 02:20 | NUR ---
PT TO BED 8
[2022-09-10] MEDS ORDERED: ALBUTEROL SULFATE/IPRATROPIU 3 ML SOL IH ONE ×2 (02:30→02:35)
--- NOTE | 2022-09-10 02:31 | NUR ---
ASSUMED CARE C/O SOB, AUDIBLE WHEEZING, HX ASTHMA, MD AT BS TO EXAMINE
[2022-09-10] MEDS ORDERED: predniSONE 20 MG TAB PO ONE (02:35)
[2022-09-10] MEDS ORDERED: ALBU0.0912 IH (03:15)
[2022-09-10] MEDS ORDERED: PRED20TA5 PO (03:15)
[2022-09-10 03:28] VITALS: BP 128/88
--- NOTE | 2022-09-10 03:30 | NUR ---
Patient discharged with v/s stable. Written and verbal after care instructions given and explained. New rx proventil and deltasone. Patient verbalized understanding. Ambulatory with steady gait. All questions addressed prior to discharge. Advised to follow up with PMD.
== END 2022-09-10 03:28 | disposition home or self-care (01) ==
LOC: MED 02:10
DX: J45.901 Unspecified asthma with (acute) exacerbation (principal)
CPT/HCPCS: 94640; 99283; J7512

== ENCOUNTER 2022-10-02 05:50 | Emergency (ER) | payer OTHER ==
[~2022-10-02] VITALS: Ht 152.4 cm; Wt 52.2 kg
[2022-10-02 05:51] VITALS: BP 132/96
--- NOTE | 2022-10-02 05:59 | NUR ---
PT AMB TO BED
--- NOTE | 2022-10-02 06:03 | NUR ---
RT AT BEDSIDE
[2022-10-02] MEDS ORDERED: ALBUTEROL SULFATE/IPRATROPIU 3 ML SOL IH ONE ×2 (06:05→06:25)
[2022-10-02] MEDS ORDERED: predniSONE 20 MG TAB PO ONE (06:25)
[2022-10-02] MEDS ORDERED: ATRMDI IH (07:23)
[2022-10-02] MEDS ORDERED: ALBU0.0912 INH (07:23)
[2022-10-02] MEDS ORDERED: PRED20TA5 PO (07:23)
[2022-10-02 07:27] VITALS: BP 129/86
--- NOTE | 2022-10-02 07:27 | NUR ---
Patient discharged with v/s stable. Written and verbal after care instructions FOR ASTHMA given and explained. Patient alert, oriented and verbalized understanding of instructions. Ambulatory with steady gait. All questions addressed prior to discharge. ID band removed. Patient advised to follow up with PMD. Rx of ALBUTEROL SULFATE,IPRATROPIUM AND PREDNISONE given. Opportunity to ask questions provided and answered.
== END 2022-10-02 07:27 | disposition home or self-care (01) ==
LOC: MED 05:50
DX: J45.901 Unspecified asthma with (acute) exacerbation (principal); D64.9 Anemia, unspecified; Z79.899 Other long term (current) drug therapy; Z98.890 Other specified postprocedural states; Z20.822 Contact with and (suspected) exposure to COVID-19
CPT/HCPCS: 87426; 87804; 94640; 99283; J7512

== ENCOUNTER 2022-10-24 21:39 | Emergency (ER) | payer OTHER ==
[~2022-10-24] VITALS: Ht 160 cm; Wt 52.6 kg
[~2022-10-24 21:39] MED LIST changes: +ATRMDI IH
[2022-10-24 21:40] VITALS: BP 124/80; PULSE 140; RESP 28; TEMP 98.6; O2SAT 94
--- NOTE | 2022-10-24 21:40 | NUR ---
TO BED AMBULATORY
[2022-10-24] MEDS ORDERED: methylPREDNISolone SS 125 MG/2 ML VIAL IM ONE (21:45)
[2022-10-24] MEDS ORDERED: ALBUTEROL SULFATE/IPRATROPIU 3 ML SOL IH ONE (21:45)
--- NOTE | 2022-10-24 21:48 | NUR ---
Delgado miles in [facility] - 10/24/22 at [address] Mercado examining patient.
--- NOTE | 2022-10-24 21:54 | NUR ---
Respiratory Therapist at bedside for respiratory intervention.
[2022-10-24] MEDS ORDERED: LEVALBUTEROL 1.25 MG/0.5 ML NEBU INH ONE ×3 (21:55→22:35)
[2022-10-24 22:00] VITALS: PULSE 146; RESP 27; O2SAT 92
--- NOTE | 2022-10-24 22:00 | NUR ---
PT STATES SHE HAS HX OF ASTHMA; REPORTS SHE WAS UNAWARE OF A NEW CAT AT HOME AND IT TRIGGERED HER ASTHMA EARLIER TODAY. PT USED HER INHALER AT HOME WITH LITTLE TO NO RELIEF. ARRIVED TO ED WITH C/O SOB; NOTED WITH AUDITORY WHEEZING, COUGHING, AND DYSPNEA UPON ARRIVAL. RT CALLED TO BEDSIDE.
[2022-10-24] MEDS ORDERED: MAG SULF 2000 MG/WATER PREMIX 50 ML IV ONE (22:15)
--- NOTE | 2022-10-24 22:16 | NUR ---
Dr. Mercado examining patient.
[2022-10-24] MEDS ORDERED: IPRATROPIUM 0.02% 0.5 MG/2.5 ML NEBU INH ONE (22:35)
[2022-10-24 22:37] VITALS: PULSE 117; PULSE 120; RESP 23; O2SAT 100
[2022-10-25 01:30] VITALS: PULSE 109; O2SAT 100
[2022-10-25] MEDS ORDERED: PRED20TA5 PO (01:44)
[2022-10-25] MEDS ORDERED: ALBU0.0912 INH (01:44)
--- NOTE | 2022-10-25 02:14 | NUR ---
Patient discharged with v/s stable. Written and verbal after care instructions given and explained. Patient alert, oriented and verbalized understanding of instructions. Ambulatory with steady gait. All questions addressed prior to discharge. ID band removed. Patient advised to follow up with PMD. Rx of Albuterol and Prednisone sent to preferred pharmacy. Patient educated on indication of medication including possible reaction and side effects. Opportunity to ask questions provided and answered.
[2022-10-25 02:15] VITALS: BP 116/89; PULSE 97; RESP 20; TEMP 98.7; O2SAT 100
== END 2022-10-25 02:14 | disposition home or self-care (01) ==
LOC: MED 21:39
DX: J45.901 Unspecified asthma with (acute) exacerbation (principal); R06.2 Wheezing; D64.9 Anemia, unspecified; Z79.899 Other long term (current) drug therapy; Z98.890 Other specified postprocedural states
CPT/HCPCS: 93005; 94640; 96365; 96366; 96375; 99291; J2930; J3475; J7612; J7644

== ENCOUNTER 2022-11-16 10:30 | Emergency (ER) | payer OTHER ==
--- NOTE | 2022-11-16 11:22 | NUR ---
PATIENT LEFT WITHOUT BEING SEEN BY DR. GRACE. NO FURTHER CARE PROVIDED FOR PATIENT.
== END 2022-11-16 11:22 | disposition left against medical advice (07) ==
LOC: MED 10:30
DX: R45.851 Suicidal ideations (principal); Z53.21 Procedure and treatment not carried out due to patient leaving prior to being seen by health care provider

== ENCOUNTER 2022-12-29 19:47 | Emergency (ER) | payer OTHER ==
[~2022-12-29] VITALS: Ht 162.6 cm; Wt 54.4 kg
[2022-12-29 19:53] VITALS: BP 131/72; PULSE 111; RESP 18; TEMP 97.4; O2SAT 99
[2022-12-29] MEDS ORDERED: ALBUTEROL SULFATE/IPRATROPIU 3 ML SOL IH ONE (19:55)
[2022-12-29] MEDS ORDERED: predniSONE 20 MG TAB PO ONE (19:55)
[2022-12-29] MEDS ORDERED: ALBUTEROL 0.083% 2.5 MG/3 ML NEBU INH ONE (19:55)
[2022-12-29 20:02] VITALS: PULSE 105; RESP 20; O2SAT 96
[2022-12-29] MEDS ORDERED: ALBU0.0912 IH (21:12)
[2022-12-29] MEDS ORDERED: PRON INH (21:12)
[2022-12-29 21:16] VITALS: BP 131/72; PULSE 105; RESP 20; TEMP 97.4; O2SAT 96
== END 2022-12-29 21:16 | disposition home or self-care (01) ==
LOC: MED 19:47
DX: O99.511 Diseases of the respiratory system complicating pregnancy, first trimester (principal); J45.901 Unspecified asthma with (acute) exacerbation; Z3A.12 12 weeks gestation of pregnancy
CPT/HCPCS: 94640; 99283; J7512; J7613

== ENCOUNTER 2023-01-10 22:29 | Emergency (ER) | payer OTHER ==
[~2023-01-10] VITALS: Ht 152.4 cm; Wt 49.9 kg
[2023-01-10 23:18] VITALS: BP 140/107; PULSE 100; RESP 20; TEMP 98.2; O2SAT 99
[2023-01-10] MEDS ORDERED: LIDOCAINE/PRILOCAINE 2.5% 5 GM TUBE TP ONE (23:30)
[2023-01-10] MEDS ORDERED: ACETAMINOPHEN 325 MG TAB PO ONE (23:30)
[2023-01-10 23:54] LABS: APPEARANCE,URINE CLOUDY (CLEAR); BILIRUBIN,URINE NEGATIVE (NEGATIVE); BLOOD, URINE NEGATIVE (NEGATIVE); COLOR,URINE YELLOW (YELLOW); LEUKOCYTE ESTERASE ,URINE 2+ (NEGATIVE); NITRITE, URINE NEGATIVE (NEGATIVE); PROTEIN,URINE NEGATIVE (NEGATIVE); UGLUCOSE NEGATIVE (NEGATIVE); UROBILINOGEN,URINE 0.2 EU/dL (0.2 - 1)
[2023-01-11 00:01] LABS: BACTERIA,URINE >30 (MANY) /HPF (None Seen); MUCUS,URINE 1+ /LPF (None Seen); RBC,URINE 0-5 /HPF (0-5); SQUAMOUS EPITHELIAL CELL,UR 0-3 (FEW) /LPF (0-3 (FEW))
[2023-01-11] MEDS ORDERED: CEPH-588 PO (00:13)
[2023-01-11] MEDS ORDERED: ACET-11169 PO (00:22)
[2023-01-11] MEDS ORDERED: EMLAC TP (00:22)
[2023-01-11 00:40] VITALS: BP 110/63; PULSE 78; RESP 16; O2SAT 99
== END 2023-01-11 00:40 | disposition home or self-care (01) ==
LOC: MED 22:29
DX: O9A.211 Injury, poisoning and certain other consequences of external causes complicating pregnancy, first trimester (principal); S39.011A Strain of muscle, fascia and tendon of abdomen, initial encounter; O23.41 Unspecified infection of urinary tract in pregnancy, first trimester; O99.511 Diseases of the respiratory system complicating pregnancy, first trimester; J45.909 Unspecified asthma, uncomplicated; Z3A.14 14 weeks gestation of pregnancy; Z79.899 Other long term (current) drug therapy; Z79.2 Long term (current) use of antibiotics; X58.XXXA Exposure to other specified factors, initial encounter; Y92.89 Other specified places as the place of occurrence of the external cause; Y93.89 Activity, other specified; Y99.8 Other external cause status
CPT/HCPCS: 81001; 87086; 99284

== ENCOUNTER 2023-03-29 13:15 | Observation (INO) | payer OTHER ==
[~2023-03-29] VITALS: Ht 152.4 cm; Wt 46.7 kg
[~2023-03-29 13:15] MED LIST changes: +ACET-11169 PO; +CEPH-588 PO; +EMLAC TP
[2023-03-29 13:45] VITALS: BP 107/61; PULSE 88; RESP 18; TEMP 97.4; O2SAT 98
[2023-03-29] MEDS ORDERED: ONDANSETRON 4 MG/2 ML VIAL IVP PRN (14:40)
[2023-03-29] MEDS ORDERED: LACTATED RINGERS 1,000 ML IV SCH ×2 (14:40→15:40)
[2023-03-29] MEDS ORDERED: ONDANSETRON 4 MG/2 ML VIAL ONE (14:47)
[2023-03-29] MEDS ORDERED: PREN-13 PO (15:46)
== END 2023-03-29 16:40 | disposition home or self-care (01) ==
LOC: MLD 13:15
PROVIDERS: ADMIT Obstetrics & Gynecology; ATTEND Obstetrics & Gynecology
DX: O21.2 Late vomiting of pregnancy (principal); O26.892 Other specified pregnancy related conditions, second trimester; R10.9 Unspecified abdominal pain; Z3A.25 25 weeks gestation of pregnancy
CPT/HCPCS: 81000; 96360; 96374; G0378; G0379; J2405; 96361

== ENCOUNTER 2023-03-29 22:50 | Observation (INO) | payer OTHER ==
[~2023-03-29 22:50] MED LIST changes: +PREN-13 PO
[2023-03-29 23:18] VITALS: BP 122/64; PULSE 90; RESP 18; TEMP 98.5
[2023-03-30] MEDS ORDERED: NACL 0.9% 1,000 ML IV SCH (01:15)
[2023-03-30] MEDS ORDERED: ONDANSETRON 4 MG/2 ML VIAL IVP PRN (01:15)
[2023-03-30] MEDS ORDERED: NACL 0.9% 1,000 ML IV ONE (01:15)
[2023-03-30] MEDS ORDERED: ONDANSETRON 4 MG/2 ML VIAL ONE (01:29)
[2023-03-30] MEDS ORDERED: cefTRIAXone 1,000 MG VIAL ONE (01:30)
== END 2023-03-30 04:00 | disposition left against medical advice (07) ==
LOC: MLD 22:50
PROVIDERS: ADMIT Obstetrics & Gynecology; ATTEND Obstetrics & Gynecology
DX: O26.892 Other specified pregnancy related conditions, second trimester (principal); R10.9 Unspecified abdominal pain; O21.2 Late vomiting of pregnancy; Z3A.25 25 weeks gestation of pregnancy
CPT/HCPCS: 81000; G0378; J0696; J2405

== ENCOUNTER 2023-05-23 18:39 | Observation (INO) | payer OTHER ==
[~2023-05-23] VITALS: Ht 160 cm; Wt 59.0 kg
[~2023-05-23 18:39] MED LIST changes: -ACET-10509 PO; -ACET-11169 PO; -ALBU0.0912 IH; -ALBU0.0912 INH; -ALBU2.5V IH; -ATRMDI IH; -CEPH-588 PO; -EMLAC TP; -PRED20TA5 PO; -PRON INH
[2023-05-23 19:39] VITALS: BP 132/72; PULSE 122; RESP 22; TEMP 100.1; O2SAT 98
[2023-05-23] MEDS ORDERED: IPRATROPIUM 0.02% 0.5 MG/2.5 ML NEBU INH ONE (19:50)
[2023-05-23] MEDS ORDERED: ALBUTEROL 0.083% 2.5 MG/3 ML NEBU INH ONE (19:50)
[2023-05-23] MEDS ORDERED: NACL 0.9% 1,000 ML IV ONE (19:55)
[2023-05-23] MEDS ORDERED: ACETAMINOPHEN 325 MG TAB PO ONE (19:55)
[2023-05-23 20:08] VITALS: PULSE 108; RESP 26; O2SAT 97
[2023-05-23] MEDS ORDERED: predniSONE 20 MG TAB PO ONE (21:05)
[2023-05-23] MEDS ORDERED: ACETAMINOPHEN 325 MG TAB ONE (21:19)
[2023-05-23 21:54] LABS: FLU B ANTIGEN NEGATIVE (NEGATIVE)
[2023-05-23 21:55] LABS: FLU A ANTIGEN POSITIVE (NEGATIVE)
[2023-05-23] MEDS ORDERED: PRED20TA5 PO (22:02)
[2023-05-23] MEDS ORDERED: TAM75 PO (22:02)
[2023-05-23 22:30] VITALS: O2SAT 99
[2023-05-23 22:40] VITALS: BP 103/59; PULSE 117; RESP 24; TEMP 98.5
== END 2023-05-23 23:55 | disposition home or self-care (01) ==
LOC: MED 18:39 → MLD 22:30 → EDSTATUS 22:39
PROVIDERS: ADMIT Obstetrics & Gynecology; ATTEND Obstetrics & Gynecology
DX: O99.513 Diseases of the respiratory system complicating pregnancy, third trimester (principal); J45.901 Unspecified asthma with (acute) exacerbation; J10.1 Influenza due to other identified influenza virus with other respiratory manifestations; Z20.822 Contact with and (suspected) exposure to COVID-19; Z3A.33 33 weeks gestation of pregnancy
CPT/HCPCS: 87426; 87804; 94640; 94760; 96360; 99284; G0378; J7512; J7613; J7644

== ENCOUNTER 2023-06-28 16:20 | Observation (INO) | payer OTHER ==
[~2023-06-28] VITALS: Ht 162.6 cm; Wt 64.9 kg
[~2023-06-28 16:20] MED LIST changes: +PRED20TA5 PO; +TAM75 PO
[2023-06-28 17:20] VITALS: BP 133/93; PULSE 100; RESP 18; TEMP 98.1
[2023-06-28] MEDS ORDERED: SUD30 PO (17:53)
[2023-06-28] MEDS ORDERED: ALBU0.0912 IH (17:53)
[2023-06-28] MEDS ORDERED: ACET650S53 GT (17:53)
== END 2023-06-28 17:50 | disposition left against medical advice (07) ==
LOC: MFCC 16:20
PROVIDERS: ADMIT Obstetrics & Gynecology; ATTEND Obstetrics & Gynecology
DX: O09.523 Supervision of elderly multigravida, third trimester (principal); O26.893 Other specified pregnancy related conditions, third trimester; O60.03 Preterm labor without delivery, third trimester; R10.9 Unspecified abdominal pain; R03.0 Elevated blood-pressure reading, without diagnosis of hypertension; Z3A.38 38 weeks gestation of pregnancy
CPT/HCPCS: G0378

== ENCOUNTER 2023-07-18 21:29 | Emergency (ER) | payer OTHER ==
[~2023-07-18] VITALS: Ht 152.4 cm; Wt 54.4 kg
[~2023-07-18 21:29] MED LIST changes: +ACET650S53 GT; +ALBU0.0912 IH; +SUD30 PO
[2023-07-18 21:35] VITALS: BP 121/91; PULSE 115; RESP 32; TEMP 97.9; O2SAT 97
[2023-07-18] MEDS: ALBUTEROL SULFATE/IPRATROPIU 3 ML SOL IH ONE (21:43)
[2023-07-18 21:44] VITALS: PULSE 120; RESP 22; O2SAT 96
[2023-07-18 21:45] VITALS: PULSE 120; RESP 22; O2SAT 96
[2023-07-18] MEDS ORDERED: PRON INH (22:35)
[2023-07-18] MEDS ORDERED: PRED20TA5 PO (22:35)
[2023-07-18] MEDS ORDERED: ALBU0.0912 IH (22:35)
[2023-07-18] MEDS: predniSONE 20 MG TAB PO ONE (22:45)
[2023-07-18 22:50] VITALS: BP 121/91; PULSE 120; RESP 22; TEMP 97.9; O2SAT 96
== END 2023-07-18 22:50 | disposition home or self-care (01) ==
LOC: MED 21:29
DX: J45.901 Unspecified asthma with (acute) exacerbation (principal); Z79.899 Other long term (current) drug therapy
CPT/HCPCS: 94640; 99283; J7512

== ENCOUNTER 2023-08-17 08:51 | Emergency (ER) | payer OTHER ==
[~2023-08-17] VITALS: Ht 152.4 cm; Wt 54.4 kg
[~2023-08-17 08:51] MED LIST changes: +PRON INH
[2023-08-17] MEDS ORDERED: TERBUTALINE 1 MG/ML VIAL SUBQ ONE (08:55)
[2023-08-17 09:00] VITALS: BP 137/62; PULSE 114; RESP 25; TEMP 98; O2SAT 94
[2023-08-17] MEDS: ALBUTEROL SULFATE/IPRATROPIU 3 ML SOL IH ONE (09:02)
[2023-08-17 09:04] VITALS: PULSE 108; PULSE 110; RESP 23; RESP 26; O2SAT 97; O2SAT 98
[2023-08-17] MEDS: predniSONE 20 MG TAB PO ONE (09:19)
[2023-08-17] MEDS ORDERED: HYDR-2734 TP (10:06)
[2023-08-17] MEDS ORDERED: PRED50TA2 PO (10:06)
[2023-08-17] MEDS ORDERED: ALBU0.0912 INH (10:06)
[2023-08-17 10:17] VITALS: BP 128/78; PULSE 64; RESP 18; TEMP 98.1; O2SAT 100
== END 2023-08-17 10:17 | disposition home or self-care (01) ==
LOC: MED 08:51
DX: J45.909 Unspecified asthma, uncomplicated (principal); K64.4 Residual hemorrhoidal skin tags; Z79.899 Other long term (current) drug therapy
CPT/HCPCS: 71045; 94640; 99283; J3105; J7512

== ENCOUNTER 2023-11-03 22:03 | Emergency (ER) | payer OTHER ==
[~2023-11-03] VITALS: Ht 152.4 cm; Wt 52.2 kg
[~2023-11-03 22:03] MED LIST changes: +ALBU0.0912 INH; +HYDR-2734 TP; +PRED50TA2 PO
[2023-11-03 22:05] VITALS: BP 151/100; PULSE 118; RESP 22; TEMP 97.7; O2SAT 99
[2023-11-03] MEDS: ALBUTEROL 0.083% 2.5 MG/3 ML NEBU INH ONE (22:16)
[2023-11-03 22:18] VITALS: PULSE 115; PULSE 118; RESP 26; O2SAT 94; O2SAT 95
[2023-11-03] MEDS: MAG SULF 2000 MG/WATER PREMIX 50 ML IV ONE (22:31)
[2023-11-03] MEDS: EPINEPHrine 1 MG/ML AMP SUBQ ONE (22:32)
[2023-11-03] MEDS: predniSONE 20 MG TAB PO ONE (22:32)
[2023-11-03] MEDS: methylPREDNISolone SS 125 MG/2 ML VIAL IVP ONE (22:32)
[2023-11-03] MEDS: ALBUTEROL SULFATE/IPRATROPIU 3 ML SOL IH ONE (22:38)
[2023-11-03 22:47] VITALS: BP 122/70; PULSE 120; RESP 26; TEMP 97.7; O2SAT 95
== END 2023-11-03 22:43 | disposition left against medical advice (07) ==
LOC: MED 22:03
DX: J45.901 Unspecified asthma with (acute) exacerbation (principal); Z79.1 Long term (current) use of non-steroidal anti-inflammatories (NSAID); Z79.899 Other long term (current) drug therapy
CPT/HCPCS: 94640; 96372; 99284; J0171; J7512; J7613

== ENCOUNTER 2023-11-19 09:53 | Emergency (ER) | payer OTHER ==
[~2023-11-19] VITALS: Ht 152.4 cm; Wt 54.0 kg
[2023-11-19 10:08] VITALS: BP 145/65; PULSE 121; RESP 22; TEMP 97; O2SAT 100
[2023-11-19 10:32] VITALS: PULSE 110; RESP 22; O2SAT 93
[2023-11-19] MEDS: ALBUTEROL SULFATE/IPRATROPIU 3 ML SOL IH ONE (10:32)
[2023-11-19] MEDS: predniSONE 20 MG TAB PO ONE (10:33)
[2023-11-19] MEDS ORDERED: ALBUTEROL 0.083% 2.5 MG/3 ML NEBU INH ONE (10:36)
[2023-11-19] MEDS: ALBUTEROL 0.083% 2.5 MG/3 ML NEBU INH ONE (10:38)
[2023-11-19] MEDS ORDERED: AZIT250T4 PO (11:02)
[2023-11-19 11:26] LABS: FLU A ANTIGEN negative (NEGATIVE); FLU B ANTIGEN negative (NEGATIVE)
[2023-11-19 11:30] VITALS: BP 134/87; PULSE 102; RESP 16; TEMP 97; O2SAT 95
== END 2023-11-19 11:30 | disposition home or self-care (01) ==
LOC: MED 09:53
DX: J45.901 Unspecified asthma with (acute) exacerbation (principal); Z20.822 Contact with and (suspected) exposure to COVID-19; Z79.899 Other long term (current) drug therapy; Z79.2 Long term (current) use of antibiotics
CPT/HCPCS: 71045; 87426; 87804; 94640; 99284; J7512; J7613; Q0092

== ENCOUNTER 2024-01-11 08:46 | Emergency (ER) | payer OTHER ==
[~2024-01-11] VITALS: Ht 152.4 cm; Wt 52.2 kg
[~2024-01-11 08:46] MED LIST changes: +AZIT250T4 PO
[2024-01-11 08:54] VITALS: BP 152/106; PULSE 126; RESP 28; TEMP 97.5; O2SAT 97
[2024-01-11] MEDS: predniSONE 20 MG TAB PO ONE (08:59)
[2024-01-11] MEDS: IPRATROPIUM 0.02% 0.5 MG/2.5 ML NEBU INH ONE (09:01)
[2024-01-11] MEDS: ALBUTEROL 0.083% 2.5 MG/3 ML NEBU INH ONE (09:01)
[2024-01-11 09:02] VITALS: PULSE 72; RESP 22; O2SAT 97
[2024-01-11 09:07] VITALS: O2SAT 97
[2024-01-11] MEDS ORDERED: ALBU0.0912 IH (09:27)
[2024-01-11] MEDS ORDERED: PRON INH (09:27)
[2024-01-11] MEDS ORDERED: PRED20TA5 PO (09:27)
== END 2024-01-11 09:30 | disposition home or self-care (01) ==
LOC: MED 08:46
DX: J45.901 Unspecified asthma with (acute) exacerbation (principal); Z79.899 Other long term (current) drug therapy; Z98.890 Other specified postprocedural states
CPT/HCPCS: 94640; 99283; J7512; J7613; J7644